=== PATIENT | female | born 1945 | race Caucasian/White ===

== ENCOUNTER 2024-07-30 11:00 | Emergency (ER) | payer MEDICARE, SELFPAY ==
[2024-07-30 11:30] VITALS: BP 119/76
--- NOTE | 2024-07-30 11:48 | ED.GENMED ---
ED Provider Triage
<Gypsy You NP - Last Filed: 07/30/24 11:56>
-
Patient seen by provider in Triage?: Seen in Triage
Attestation: A medical screening examination has been initiated by a qualified medical provider. Based on the assessment performed at this time, it has been determined that an emergent medical condition may exist and the patient has been informed
that further medical evaluation and possible additional diagnostic testing may be needed.
HPI: sudden onset feeling lightheaded and like she would pass out just after washing herself in her Bathroom, called for her who called daughter, who called EMS and they helped her up. No LOC. Denies H/A, neck pain. Now with pain right
lower back.
Pt in bed past 2 days for her chronic, intermittent vertigo.
GENERAL: Alert , in no apparent distress
EYE: No visual abnormalities.
ENT: No visible abnormalities.
LUNGS: No acute respiratory distress
NEUROLOGICAL: Alert and oriented. No focal neurological abnormalities
SKIN: Skin intact. No visible changes.
MUSCULOSKELETAL: Moving extremities normally. Tender right lower back, just lateral to spine. no spinal bony tenderness
PSYCH: Normal and appropriate interaction.
This is a medical evaluation conducted in person to initiate diagnostic evaluation and provide initial therapeutics. Please see further documentation by the treating clinician.
History of Present Illness
<Gypsy You NP - Last Filed: 07/30/24 11:56>
General
Chief Complaint: Fainting/Passed Out
Time Seen by Provider: 07/30/24 13:01
<Nya Lopez MD - Last Filed: 07/30/24 18:54>
General
Source: patient and family
History of Present Illness
History of Present Illness:
this patient is a 78-year-old female presents to the emergency department after having an episode of near syncope. She describes a history of chronic intermittent vertigo and states that she was in bed all day yesterday because of vertigo with
poor p.o. intake. She woke up this morning and went into the bathroom and as she was standing from the mirror at approximately 9:30 AM she suddenly started to feel lightheaded and fell down to the ground. She did not hit her head and denies loss
of consciousness. Her only complaint is discomfort on the right side of her mid back. She denies neck pain, headache, visual changes, numbness, tingling, focal weakness, chest pain, palpitations, dyspnea, abdominal pain, or other complaints. Her
daughter who is bedside states that she has had syncopal/near syncopal episodes in the past but is never sought medical care for this.
Past History
<Nya Lopez MD - Last Filed: 07/30/24 18:54>
Past History
ED Past Medical History: Other (High blood pressure, high cholesterol, vertigo)
ED Past Surgical History: Orthopedic
Social History
Tobacco: Former smoker
Alcohol: None
Drug: None
Personal:
Living: with family
Phy Exam
<Nya Lopez MD - Last Filed: 07/30/24 18:54>
Physical Exam
Physical Exam:
GENERAL: Alert , in no apparent distress
EYE: pupils equal and reactive, no nystagmus, EOMI, no photophobia
NECK: Supple, no significant adenopathy, no midline tenderness.
ENT: o/p clr, mmm.
CARDIAC: Regular rate and rhythm .
LUNGS: Clear breath sounds bilaterally, no acute respiratory distress, no wheezes/rales/rhonchi
ABDOMEN: Soft, without focal tenderness, no r/g, no cvat
NEUROLOGICAL: Alert and oriented, no focal neuro deficits, [id number] normal, motor 5 out of 5, sensory intact, cranial nerves II through XII intact, gait normal
SKIN: Warm and dry, skin intact.
MUSCULOSKELETAL: No edema, well perfused.
PSYCH: Normal and appropriate interaction.
bACK: no midline ttp, no bruiing noted
Course
<Gypsy JillianMiley Day, STUNT WOMAN - Last Filed: 07/30/24 11:56>
Orders/Labs/Results
Orders:
Orders
07/30/24 11:04
ECG [Electrocardiogram (*1)] Urgent
Reason for Study: Syncope
EKG- Treatment ONCE
07/30/24 11:48
Complete Blood Count/With Diff Urgent
Comprehensive Metabolic Panel Urgent
07/30/24 11:51
L-S Spine, 2 or 3 View [CR Lumbar Spine 2 Or 3 Views] Urgent
Comment:
Reason For Exam: Pain after fall.
07/30/24 11:53
CT Head W/o Iv Contrast Urgent
Comment:
Reason For Exam: sudden onset feeling like she would pass out
Abnormal Lab Results
07/30/24
11:48
MCHC 32.4 L g/dL
(33.0-37.0)
MPV 10.7 H fL
(7.4-10.4)
Absolute Lymphs (auto) 0.9 L 10^3/uL
(1.2-3.4)
Lymphocytes % 16.1 L %
(20.5-51.1)
BUN 21 H mg/dl
(7-17)
07/30/24 11:48
07/30/24 11:48
Vital Signs
Initial and Last Documented VS:
Initial Vital Signs
Temp Pulse BP Pulse Ox
98.4 F 100 119/76 100
07/30/24 11:30 07/30/24 11:30 07/30/24 11:30 07/30/24 11:30
Last Documented Vital Signs
Temp Pulse Resp BP Pulse Ox
98.4 F 72 20 122/64 99
07/30/24 11:30 07/30/24 13:20 07/30/24 13:20 07/30/24 13:20 07/30/24 13:20
<Nya Lopez MD - Last Filed: 07/30/24 18:54>
Orders/Labs/Results
Orders:
Orders
07/30/24 11:04
ECG [Electrocardiogram (*1)] Urgent
Reason for Study: Syncope
EKG- Treatment ONCE
07/30/24 11:48
Complete Blood Count/With Diff Urgent
Comprehensive Metabolic Panel Urgent
07/30/24 11:51
L-S Spine, 2 or 3 View [CR Lumbar Spine 2 Or 3 Views] Urgent
Comment:
Reason For Exam: Pain after fall.
07/30/24 11:53
CT Head W/o Iv Contrast Urgent
Comment:
Reason For Exam: sudden onset feeling like she would pass out
Abnormal Lab Results
07/30/24
11:48
MCHC 32.4 L g/dL
(33.0-37.0)
MPV 10.7 H fL
(7.4-10.4)
Absolute Lymphs (auto) 0.9 L 10^3/uL
(1.2-3.4)
Lymphocytes % 16.1 L %
(20.5-51.1)
BUN 21 H mg/dl
(7-17)
07/30/24 11:48
07/30/24 11:48
Vital Signs
Initial and Last Documented VS:
Initial Vital Signs
Temp Pulse BP Pulse Ox
98.4 F 100 119/76 100
07/30/24 11:30 07/30/24 11:30 07/30/24 11:30 07/30/24 11:30
Last Documented Vital Signs
Temp Pulse Resp BP Pulse Ox
98.4 F 72 20 122/64 99
07/30/24 11:30 07/30/24 13:20 07/30/24 13:20 07/30/24 13:20 07/30/24 13:20
<Nya Lopez MD - Last Filed: 07/30/24 18:54>
*Critical Care Note
Total Time (30-74mins, 75-104mins- exclusive of procedures): Not Applicable
<Nya Lopez MD - Last Filed: 07/30/24 18:54>
Update Note
Update Note:
Patient presents to the Emergency Department with ____near syncope
Number and Complexity of Problems Addressed at the Encounter
� Chronic conditions affecting care:
� Acute Exacerbation and/or Progression of Chronic Illness:
� Differential Diagnosis includes: But not limited to dehydration, vasovagal events, electrolyte disorder, arrhythmia, etc. etc.
Amount and/or Complexity of Data to be Reviewed and Analyzed
� I performed an independent evaluation of and my interpretation is:
EKG: Read by me, normal sinus rhythm, normal rate, normal axis, no acute ischemia
CT: Read by Dr. Mcbride 1. No CT evidence for acute intracranial hemorrhage or transcortical infarct.
2. Small asymmetric focal regions of low-attenuation in the anterior limb of the left internal capsule and left external capsule. Diagnostic possibilities are (1) white matter leukoaraiosis or (2) small chronic lacunar infarcts.
3. Mild periventricular white matter leukoaraiosis in the frontal lobes.
4. Mild diffuse cerebral and cerebellar volume loss.
Xrays:
Laboratory Studies: Generally unremarkable
Other:ls spine read by me nad
� Review of other/old records reveals:
� Clinical information was obtained by an independent historian: Daughter who she lives with and is at bedside providing additional history
� Prescriptions/Medications Considered but not given:
� Further testing considered but not performed:
Risk of Complications and/or Morbidity or Mortality of Patient Management
� Social determinants of health affecting care:
� Discussion with other providers (PCP, Hospitalists, Consultants, etc):
� Escalation of care including admission/observation vs risk of discharge considered: Suspect back pain likely soft tissue related, no bony injury noted on x-ray, patient is aware this is a pulmonary report. No neurological
symptoms. Gait is normal patient awake alert pleasant. I had a long discussion with patient and daughter regarding her CAT scan findings and recommendation for neurology follow-up as well as reasons return the emergency department. They expressed
understanding of this. Note: pt is on asa, 81 mg qd.
ED Attending Note
<Gypsy You NP - Last Filed: 07/30/24 11:56>
-
Portions of this chart may have been created with voice recognition software.� Occasional wrong word or��sound alike� substitutions may have occurred due to the inherent limitations of voice recognition software.
Discharge Plan
Departure
Patient Disposition: Home (Routine Discharge)
Date of Disposition: 07/30/24
Time of Disposition: 13:32
Patient with high blood pressure during this ER visit?: No
Condition: Good
Discharge Problem:
Near syncope
Instructions: Syncope (fainting)
Referrals:
Asif Valeznuela MD [Active] - Next open appointment
Narciso Olguin MD [Active] - Next open appointment
Activity Restrictions/Additional Instructions:
PLEASE SEE ATTACHED CAT SCAN REPORT OF BRING THIS WITH YOU WHEN YOU SEE YOUR NEUROLOGIST/PRIMARY CARE DOCTOR AND CLOSE FOLLOW-UP. IF YOU DEVELOP NUMBNESS, WEAKNESS, CLUMSINESS, CHANGE IN VISION, CHANGE IN SPEECH, RECURRENT DIZZINESS, SEVERE
HEADACHE, NECK PAIN, OR OTHER WORRISOME SIGNS, PLEASE RETURN TO THE ER IMMEDIATELY.
Interventions
Interventions:
*Risk Screen - Suicide Last Done: 07/30/24 11:36
*General Assessment Last Done: 07/30/24 13:20
*Neglect/Abuse Screening Last Done: 07/30/24 11:36
*ED COVID-19 Vaccine History Last Done: 07/30/24 13:20
*Nursing Disposition Last Done: 07/30/24 13:49
ED- Cardiac Assessment Last Done: 07/30/24 13:20
ED- Neurological Assessment Last Done: 07/30/24 13:20
Discharge Date and Time
Discharge Date/Time: 07/30/24 13:50
Print Language: GUATEMALAN
[2024-07-30 12:14] LABS: % Basophils 1.3 % (0-2); % Eosinophils 1.9 % (0-6); % Immature Granulocytes 0.4 % (0-0.5); % Lymphocytes 16.1 % (20.5-51.1); % Monocytes 7.1 % (1.7-9.3); % Neutrophils 73.2 % (42.2-75.2); Absolute Basophils 0.1 10^3/uL (0-0.2); Absolute Eosinophils 0.1 10^3/uL (0-0.7); Absolute Lymphocytes 0.9 10^3/uL (1.2-3.4); Absolute Monocytes 0.4 10^3/uL (0.1-0.6); Hematocrit 43.2 % (37.0-47.0); Mean Corp Hgb Conc. 32.4 g/dL (33.0-37.0); Mean Corpuscular Hgb 30.7 pg (27.0-31.0); Mean Corpuscular Volume 94.7 fL (81.0-99.0); Mean Platelet Volume 10.7 fL (7.4-10.4); Nucleated Red Blood Cells % 0 %; Platelet Count 193 10^3/uL (130-400); Red Blood Cell Count 4.56 10^6/uL (4.20-5.40); Red Cell Dist. Width 13.1 % (11.5-14.5); White Blood Cell Count 5.4 10^3/uL (4.8-10.8)
[2024-07-30 12:33] LABS: ALT (SGPT) 19 U/L (0-35); AST (SGOT) 34 U/L (14-36); Albumin 4.4 g/dl (3.5-5.0); Alkaline Phosphatase 72 U/L (38-126); Blood Urea Nitrogen 21 mg/dl (7-17); Calcium 9.6 mg/dl (8.4-10.2); Carbon Dioxide 24 mmol/L (22-30); Chloride 103 mmol/L (98-107); Glucose 84 mg/dl (70-99); Potassium 4.4 mmol/L (3.5-5.1); Sodium 138 mmol/L (135-145); Total Bilirubin 1.1 mg/dl (0.2-1.3); Total Protein 7.1 g/dl (6.3-8.2); eGFR > 60.00
[2024-07-30 13:20] VITALS: BP 122/64
== END 2024-07-30 13:50 | disposition home or self-care (01) ==
LOC: EMR 11:00
PROVIDERS: Emergency Medicine; EMERGENCY PHYSICIAN Emergency Medicine
DX: R55 Syncope and collapse (principal); M54.9 Dorsalgia, unspecified; W19.XXXA Unspecified fall, initial encounter; E78.00 Pure hypercholesterolemia, unspecified; Z87.891 Personal history of nicotine dependence; Z79.82 Long term (current) use of aspirin
CPT/HCPCS: 99284; 70450; 72100; 80053; 85025; 93005

== ENCOUNTER 2024-10-26 10:52 | Emergency (ER) | payer MEDICARE, SELFPAY ==
[2024-10-26] VITALS (9 sets, daily range): BP systolic 100–126; BP diastolic 49–79; PULSE 67–95; O2SAT 100; BMI 27.7
[2024-10-26 13:08] LABS: % Basophils 1.5 % (0-2); % Immature Granulocytes 0.2 % (0-0.5); % Lymphocytes 27.6 % (20.5-51.1); % Monocytes 8.1 % (1.7-9.3); % Neutrophils 58.6 % (42.2-75.2); Absolute Basophils 0.1 10^3/uL (0-0.2); Absolute Eosinophils 0.2 10^3/uL (0-0.7); Absolute Lymphocytes 1.3 10^3/uL (1.2-3.4); Absolute Monocytes 0.4 10^3/uL (0.1-0.6); Absolute Neutrophils 2.8 10^3/uL (1.4-6.5); Hematocrit 38.3 % (37.0-47.0); Hemoglobin 13.1 g/dL (12.0-16.0); Mean Corp Hgb Conc. 34.2 g/dL (33.0-37.0); Mean Corpuscular Hgb 31.3 pg (27.0-31.0); Mean Corpuscular Volume 91.4 fL (81.0-99.0); Mean Platelet Volume 10.8 fL (7.4-10.4); Nucleated Red Blood Cells % 0 %; Platelet Count 174 10^3/uL (130-400); Red Blood Cell Count 4.19 10^6/uL (4.20-5.40); Red Cell Dist. Width 13.2 % (11.5-14.5); White Blood Cell Count 4.8 10^3/uL (4.8-10.8)
--- NOTE | 2024-10-26 13:33 | ED.GENMED ---
History of Present Illness
General
Chief Complaint: Cardiac Symptoms
Source: patient and family
Time Seen by Provider: 10/26/24 12:19
History of Present Illness
History of Present Illness:
79-year-old female with past medical history of CAD status postacute [place], acute on chronic vertigo (no specific cause or etiology ever identified) presenting to the emergency department for evaluation with 1 week of persistent vertigo that has been
unrelieved with her meclizine and Zofran stating this feels similar to when she was in the hospital here earlier this year and was recommended to follow-up with neurology but has not been able to do so. Patient states that the vertigo is now
associated with some mild chest discomfort over the last 2 days, headache and intermittent shortness of breath. Patient does believe a lot of her symptoms are attributed to stress from dealing with her 's current health conditions of
end-stage renal and end-stage heart failure. Patient is otherwise denying any fevers, chills, rigors, nausea, vomiting, visual changes, focal weakness or numbness or any other concerns.
Past History
Past History
ED Past Medical History: CAD, [place] and Other (High blood pressure, high cholesterol, vertigo)
ED Past Surgical History: Orthopedic
Social History
Tobacco: Former smoker
Alcohol: None
Drug: None
Personal:
Living: with family
Review of Systems
Review of Systems
All Other Systems: ROS reviewed and negative except as documented in HPI and ROS
Phy Exam
Physical Exam
Physical Exam:
GENERAL: Alert , in no apparent distress
HEAD: NCAT
EYE: pupils equal and reactive, 4mm, EOMI
NECK: Supple
ENT: mmm.
CARDIAC: Regular rate and rhythm .
LUNGS: Clear breath sounds bilaterally, no acute respiratory distress, no wheezes/rales/rhonchi
NEUROLOGICAL: Alert and oriented, no focal neuro deficits, ambulated using walker without any ataxia
SKIN: Warm and dry, skin intact.
MUSCULOSKELETAL: No edema, well perfused.
PSYCH: Normal and appropriate interaction.
Scores
Heart Failure Risk
Heart Failure Risk Score: Not Applicable
Heart Score for Chest Pain Patients
STEMI patient?: Not applicable
Withdrawal Assessment of Alcohol
Withdrawal Assessment Completed?: Not applicable
Course
Orders/Labs/Results
Orders:
Orders
10/26/24 10:54
ECG [Electrocardiogram (*1)] Urgent
Reason for Study: Chest Pain
EKG- Treatment ONCE
10/26/24 12:50
Physical Therapy Consult [Pt Eval And Treat] Urgent
Treatment: vestibular tx
Activity Level: Ambulate
10/26/24 12:51
CT Head W/o Iv Contrast Urgent
Comment:
Reason For Exam: vertigo
Orthostatic VS- Treatment ONCE
10/26/24 12:57
Complete Blood Count/With Diff Urgent
Comprehensive Metabolic Panel Urgent
Magnesium Urgent
Troponin I Urgent
Abnormal Lab Results
10/26/24
12:57
RBC 4.19 L 10^6/uL
(4.20-5.40)
MCH 31.3 H pg
(27.0-31.0)
MPV 10.8 H fL
(7.4-10.4)
BUN 20 H mg/dl
(7-17)
Glucose 110 H mg/dl
(70-99)
10/26/24 12:57
10/26/24 12:57
Vital Signs
Initial and Last Documented VS:
Initial Vital Signs
Temp Pulse Resp BP Pulse Ox
97.5 F 82 16 100/66 95
10/26/24 11:02 10/26/24 11:02 10/26/24 11:02 10/26/24 11:02 10/26/24 11:02
Last Documented Vital Signs
Temp Pulse Resp BP Pulse Ox
97.5 F 67 22 122/51 100
10/26/24 11:02 10/26/24 15:00 10/26/24 15:00 10/26/24 15:00 10/26/24 15:00
MDM/Problems Addressed
Differential Diagnosis Includes:
Peripheral versus central vertigo, BPPV, labyrinthitis, cerebellar stroke, mass/malignancy, medication induced, anemia, stress and anxiety considered
MDM/Problems Addressed:
79-year-old female presenting to the ER for multitude of concerns but centrally patient is most concerned about her continued vertigo. This has been an ongoing symptom for many years with no specific etiology although patient does note she has not
had much outpatient workup for this and is usually just managed at home with some p.o. meclizine. Patient without any focal symptoms. She did ambulate steadily. Will check labs, repeat CT imaging, physical therapy consult and close monitoring.
*Radiology
Radiology exam reviewed: radiology read reviewed
*Pulse Oximetry
Patient hypoxic: no
*EKG
Heart Rate: 79
Rate: normal
Rhythm: sinus arrhythmia
[place]: normal axis
Ischemia: no ischemia
*[employer] T[employer] Interpretation
Rate: normal
Rhythm: sinus
*Critical Care Note
Total Time (30-74mins, 75-104mins- exclusive of procedures): Not Applicable
Patient Management
Social determinants of health affecting care: Living situation and Strong social support
Escalation/DeEscalation of care consider admission/obs:
Patient saw physical therapy and following vestibular therapy felt significant improvement and full relief of her vertigo. Patient also expressed she does feel that her stress over her 's health is likely a large contributing factor to her
symptoms. Her blood work is reassuring, head CT is unchanged from previous and does not show any acute abnormalities and patient does ambulate steadily. Patient feels comfortable with being discharged home. Recommended outpatient follow-up with
the ENT. Patient aware of return precautions. Stable for discharge home.
ED Attending Note
-
Portions of this chart may have been created with voice recognition software.� Occasional wrong word or��sound alike� substitutions may have occurred due to the inherent limitations of voice recognition software.
Discharge Plan
Departure
Patient Disposition: Home (Routine Discharge)
Date of Disposition: 10/26/24
Time of Disposition: 15:21
Patient with high blood pressure during this ER visit?: No
Discharge Problem:
Vertigo
Instructions: Vertigo - ED discharge instructions
Referrals:
Elysia Zepeda DO [Family Provider] -
Interventions
Interventions:
*Risk Screen - Suicide Last Done: 10/26/24 11:03
*Neglect/Abuse Screening Last Done: 10/26/24 11:03
*Nursing Disposition Last Done: 10/26/24 15:42
ED- Pulmonary Assessment Last Done: 10/26/24 13:10
ED- Cardiac Assessment Last Done: 10/26/24 13:10
Discharge Date and Time
Discharge Date/Time: 10/26/24 15:43
Print Language: FIJIAN
[2024-10-26 13:34] LABS: ALT (SGPT) 16 U/L (0-35); AST (SGOT) 31 U/L (14-36); Albumin 3.8 g/dl (3.5-5.0); Alkaline Phosphatase 64 U/L (38-126); Blood Urea Nitrogen 20 mg/dl (7-17); Calcium 9.7 mg/dl (8.4-10.2); Carbon Dioxide 28 mmol/L (22-30); Chloride 105 mmol/L (98-107); Estimated Creatinine Clearance 47 ml/min; Glucose 110 mg/dl (70-99); Magnesium 1.9 mg/dl (1.6-2.3); Potassium 4.4 mmol/L (3.5-5.1); Sodium 139 mmol/L (135-145); Total Bilirubin 0.9 mg/dl (0.2-1.3); Total Protein 6.5 g/dl (6.3-8.2); Troponin I < 0.012 ng/ml; eGFR > 60.00
== END 2024-10-26 15:43 | disposition home or self-care (01) ==
LOC: EMR 10:52
PROVIDERS: Physician Assistant Medical; EMERGENCY PHYSICIAN Emergency Medicine; FAMILY PHYSICIAN Family Medicine
DX: R42 Dizziness and giddiness (principal); I25.10 Atherosclerotic heart disease of native coronary artery without angina pectoris; I25.2 Old myocardial infarction; E78.00 Pure hypercholesterolemia, unspecified; Z87.891 Personal history of nicotine dependence
CPT/HCPCS: 99284; 70450; 80053; 83735; 84484; 85025; 93005

== ENCOUNTER 2024-11-18 17:52 | Emergency (ER) | payer MEDICARE, SELFPAY ==
[2024-11-18 17:59] VITALS: BP 121/57
[2024-11-18 18:09] VITALS: BP 125/57
--- NOTE | 2024-11-18 18:49 | ED.GENMED ---
History of Present Illness
General
Chief Complaint: Numbness
Time Seen by Provider: 11/18/24 18:09
History of Present Illness
History of Present Illness:
79-year-old female presents the emergency department for evaluation of abrupt onset of left facial paresthesias and left leg weakness developing approximately 1500 today. She states that she felt as though she was listing to the left when walking
and was concerned she may fall. Symptoms are present currently. Denies any speech difficulty, vision changes, headache, chest pain, or shortness of breath. She was noted to indicate chest pain while in triage however states that she felt this was
anxiety and has no chest pain at present. No shortness of breath.
Past History
Past History
ED Past Medical History: CAD, [place] and Other (High blood pressure, high cholesterol, vertigo)
ED Past Surgical History: Orthopedic
Social History
Tobacco: Former smoker
Alcohol: None
Drug: None
Personal:
Living: with family
Review of Systems
Review of Systems
Allergies reviewed?: Yes
All Other Systems: ROS reviewed and negative except as documented in HPI and ROS
Phy Exam
Physical Exam
Physical Exam:
GEN: Well appearing, NAD, WDWN
HEENT: Oral mucosa moist, no scleral icterus, no nasal congestion
Cardiac: Regular rate
Lung: No respiratory distress, no tachypnea
MSK: No gross deformity or injuries
Skin: Good color, no pallor or jaundice, no rashes
Neuro: AO x3; CN II-XII grossly intact. BUE strength 5/5 in all dominguez, sensation intact and symmetric. BLE strength 5/5 in all dominguez, sensation intact and symmetric. Gait is steady without assistance, no listing. [id number] and [id number]
normal
Psych: Calm, cooperative
Course
Orders/Labs/Results
Orders:
Orders
11/18/24 17:54
Electrocardiogram (*1) Urgent
Reason for Study: Chest Pain
EKG- Treatment ONCE
11/18/24 18:17
CT Head & Neck Angio W/wo IV Urgent
Comment:
Reason For Exam: L sided paresthesia/weakness, NIH 0
11/18/24 18:18
Electrocardiogram (*1) Urgent
Reason for Study: TIA/Stroke
EKG- Treatment ONCE
11/18/24 19:01
Complete Blood Count/With Diff Urgent
Comprehensive Metabolic Panel Urgent
11/18/24 22:21
Clopidogrel Bisulfate [Plavix] 300 mg PO NOW STA
Abnormal Lab Results
11/18/24
19:01
RBC 3.76 L 10^6/uL
(4.20-5.40)
Hgb 11.7 L g/dL
(12.0-16.0)
Hct 35.2 L %
(37.0-47.0)
MCH 31.1 H pg
(27.0-31.0)
MPV 10.9 H fL
(7.4-10.4)
Monocytes % 9.4 H %
(1.7-9.3)
Eosinophils % 6.4 H %
(0-6)
BUN 21 H mg/dl
(7-17)
Glucose 139 H mg/dl
(70-99)
Total Protein 6.1 L g/dl
(6.3-8.2)
11/18/24 19:01
11/18/24 19:01
Vital Signs
Initial and Last Documented VS:
Initial Vital Signs
Temp Pulse BP Pulse Ox
98.2 F 81 121/57 99
11/18/24 17:59 11/18/24 17:59 11/18/24 17:59 11/18/24 17:59
Last Documented Vital Signs
Temp Pulse Resp BP Pulse Ox
98.2 F 82 23 131/56 100
11/18/24 17:59 11/18/24 19:47 11/18/24 19:47 11/18/24 22:05 11/18/24 19:06
MDM/Problems Addressed
MDM/Problems Addressed:
Patient has an unremarkable neurologic exam on my assessment. She was sent for CT angiogram imaging to assess for carotid artery stenosis, large vessel occlusion, or intracranial hemorrhage and this was unremarkable. She has had prior lacunar
infarcts with no reported symptoms. She is chronically on baby aspirin. I discussed the case with neurology who recommends discharge on 21-day Plavix and outpatient brain MRI through her primary care physician
*Critical Care Note
Total Time (30-74mins, 75-104mins- exclusive of procedures): Not Applicable
ED Attending Note
-
Portions of this chart may have been created with voice recognition software.� Occasional wrong word or��sound alike� substitutions may have occurred due to the inherent limitations of voice recognition software.
Discharge Plan
Departure
Patient Disposition: Home (Routine Discharge)
Date of Disposition: 11/18/24
Time of Disposition: 22:21
Patient with high blood pressure during this ER visit?: No
Discharge Problem:
Transient ischemic attack (TIA)
Instructions: Transient Ischemic Attack ED
Prescriptions:
New
clopidogrel [Plavix] 75 mg tablet
75 mg PO DAILY Qty: 20 0RF
Referrals:
Elysia Zepeda DO [Family Provider] -
Activity Restrictions/Additional Instructions:
Follow-up with your primary care physician this week, you likely will need a brain MRI as an outpatient
Return if symptoms worsen
Interventions
Interventions:
*Risk Screen - Suicide Last Done: 11/18/24 18:02
*General Assessment Last Done: 11/18/24 19:06
*Neglect/Abuse Screening Last Done: 11/18/24 18:04
*ED- Fall Risk Assessment Last Done: 11/18/24 19:06
*ED COVID-19 Vaccine History Last Done: 11/18/24 19:06
*Nursing Disposition Last Done: 11/18/24 22:38
ED- Neurological Assessment Last Done: 11/18/24 19:06
Discharge Date and Time
Print Language: BHUTANESE
[2024-11-18 18:55] VITALS: BMI 27.6
[2024-11-18 19:14] LABS: % Basophils 1.4 % (0-2); % Eosinophils 6.4 % (0-6); % Immature Granulocytes 0.2 % (0-0.5); % Lymphocytes 35.1 % (20.5-51.1); % Monocytes 9.4 % (1.7-9.3); % Neutrophils 47.5 % (42.2-75.2); Absolute Basophils 0.1 10^3/uL (0-0.2); Absolute Eosinophils 0.3 10^3/uL (0-0.7); Absolute Lymphocytes 1.8 10^3/uL (1.2-3.4); Absolute Monocytes 0.5 10^3/uL (0.1-0.6); Absolute Neutrophils 2.4 10^3/uL (1.4-6.5); Hematocrit 35.2 % (37.0-47.0); Hemoglobin 11.7 g/dL (12.0-16.0); Mean Corp Hgb Conc. 33.2 g/dL (33.0-37.0); Mean Corpuscular Hgb 31.1 pg (27.0-31.0); Mean Corpuscular Volume 93.6 fL (81.0-99.0); Mean Platelet Volume 10.9 fL (7.4-10.4); Nucleated Red Blood Cells % 0 %; Platelet Count 173 10^3/uL (130-400); Red Blood Cell Count 3.76 10^6/uL (4.20-5.40); Red Cell Dist. Width 13.6 % (11.5-14.5)
[2024-11-18 19:28] LABS: ALT (SGPT) 14 U/L (0-35); AST (SGOT) 25 U/L (14-36); Albumin 3.8 g/dl (3.5-5.0); Alkaline Phosphatase 55 U/L (38-126); Blood Urea Nitrogen 21 mg/dl (7-17); Calcium 9.2 mg/dl (8.4-10.2); Carbon Dioxide 28 mmol/L (22-30); Chloride 106 mmol/L (98-107); Estimated Creatinine Clearance 44 ml/min; Glucose 139 mg/dl (70-99); Potassium 5.1 mmol/L (3.5-5.1); Sodium 139 mmol/L (135-145); Total Bilirubin 0.7 mg/dl (0.2-1.3); Total Protein 6.1 g/dl (6.3-8.2); eGFR 56.95
[2024-11-18 22:05] VITALS: BP 131/56
[2024-11-18] MEDS: PLAVIX 300 MG PO (22:25)
== END 2024-11-18 22:38 | disposition home or self-care (01) ==
LOC: EMR 17:52
PROVIDERS: Physician Assistant; EMERGENCY PHYSICIAN Emergency Medicine; FAMILY PHYSICIAN Family Medicine
DX: G45.9 Transient cerebral ischemic attack, unspecified (principal); E78.00 Pure hypercholesterolemia, unspecified; I25.10 Atherosclerotic heart disease of native coronary artery without angina pectoris; Z87.891 Personal history of nicotine dependence; Z79.82 Long term (current) use of aspirin
CPT/HCPCS: 99284; 70496; 70498; 80053; 85025; 93005; Q9967

== ENCOUNTER 2024-12-16 09:37 | Emergency (ER) | payer MEDICARE, SELFPAY ==
[2024-12-16 09:39] VITALS: BP 140/72
--- NOTE | 2024-12-16 10:12 | ED.GENMED ---
History of Present Illness
General
Chief Complaint: Chest Pain
Time Seen by Provider: 12/16/24 09:44
History of Present Illness
History of Present Illness:
79-year-old female with prior history of CAD status post stenting presenting to the emergency department for chest pain. Patient reports symptoms started around 6 AM. Pain in the left side of her chest with radiation to her left arm, also reports
some tingling to the left side of her face. Pain was initially sharp, now dull. Denies difficulty breathing. Denies fever. Denies any recent injury or fall. Denies weakness to extremities. Patient recently moved from [place], does not
presently have a commercial relationship manager. Denies additional acute medical complaints
Past History
Past History
ED Past Medical History: CAD, AL and Other (High blood pressure, high cholesterol, vertigo)
ED Past Surgical History: Orthopedic
Social History
Tobacco: Former smoker
Alcohol: None
Drug: None
Personal:
Living: with family
Phy Exam
Physical Exam
Physical Exam:
General: Well-appearing, no clinical signs of dehydration, nontoxic and in no acute distress
HEENT: protecting airway
Neck: appears supple
CV: Normal heart rate, regular rhythm, reproducible tenderness to the left chest wall
Resp: No accessory muscle use, no increased work of breathing, lungs clear to auscultation bilaterally
Abd: Soft and non-distended, no tenderness to palpation
Extremities: No deformities, no swelling
Neuro: alert, no focal neurologic deficit
: deferred
Rectal: deferred
Psych: Normal affect
Skin: Intact
Scores
Heart Score for Chest Pain Patients
STEMI patient?: No
History: Slightly or Non-Suspicious
ECG: Normal
Age: >/= 65 years
Risk Factors: 1 or 2 Risk Factors
Troponin: </= Normal Limit
Heart Score for Chest Pain Patients: 3
Heart Score Risk: 2.5% MACE over next 6 weeks
Course
Orders/Labs/Results
Orders:
Orders
12/16/24 09:41
EKG [Electrocardiogram (*1)] Urgent
Reason for Study: Chest Pain
EKG- Treatment ONCE
12/16/24 10:10
Aspirin 325 mg PO NOW STA
12/16/24 10:11
CR Chest - 2 Views Urgent
Comment:
Reason For Exam: chest pain
12/16/24 10:22
Complete Blood Count/With Diff Urgent
Comprehensive Metabolic Panel Urgent
Troponin I Q3H
12/16/24 13:13
Troponin I Q3H
12/16/24 13:48
Electrocardiogram (*1) Urgent
Reason for Study: Chest Pain
EKG- Treatment ONCE
Abnormal Lab Results
12/16/24
10:22
WBC 4.3 L 10^3/uL
(4.8-10.8)
RBC 4.19 L 10^6/uL
(4.20-5.40)
MPV 10.8 H fL
(7.4-10.4)
Absolute Lymphs (auto) 1.0 L 10^3/uL
(1.2-3.4)
Chloride 111 H mmol/L
(98-107)
12/16/24 10:22
12/16/24 10:22
Vital Signs
Initial and Last Documented VS:
Initial Vital Signs
Temp Pulse Resp BP Pulse Ox
97.9 F 81 17 140/72 99
12/16/24 09:39 12/16/24 09:39 12/16/24 09:39 12/16/24 09:39 12/16/24 09:39
Last Documented Vital Signs
Temp Pulse Resp BP Pulse Ox
97.9 F 67 11 138/57 97
12/16/24 09:39 12/16/24 14:45 12/16/24 14:45 12/16/24 14:00 12/16/24 14:45
MDM/Problems Addressed
MDM/Problems Addressed:
79-year-old female with prior history of CAD status post stenting presenting for left-sided chest pain. Vital signs on arrival are normal.
On exam patient is resting comfortably, no acute distress or discomfort. Benign cardiac and pulmonary exam, mild tenderness to the left chest wall. EKG obtained on patient's arrival, nonischemic, no STEMI criteria, no change from prior. Lower
suspicion for ACS, reproducible pain on exam. However, patient does have significant risk factors, so we will screen further with troponin and chest x-ray imaging and continue to closely monitor. Aspirin administered
12:00 - Initial troponin is undetectable. Vitals remained stable. Chest x-ray without acute cardiopulmonary disease. Plan for second troponin.
14:30 -second troponin within normal limits. Repeat EKG is unchanged. At this time patient remains milligram stable. Feel stable for discharge, have advised calling her commercial relationship manager tomorrow. Return precautions discussed and patient verbalized
understanding
*EKG
Interpreted by ED Provider?: Yes
EKG Intrepretation Date: 12/16/24
EKG Intrepretation Time: 10:18
Interpretation: normal
Comparison EKG: no changes (11/18/24)
Heart Rate: 73
Rate: normal
Rhythm: sinus
[place]: normal axis
Interval: normal interval
QRS Pattern: normal QRS
Ischemia: no ischemia
*Critical Care Note
Total Time (30-74mins, 75-104mins- exclusive of procedures): Not Applicable
ED Attending Note
-
Portions of this chart may have been created with voice recognition software.� Occasional wrong word or��sound alike� substitutions may have occurred due to the inherent limitations of voice recognition software.
Discharge Plan
Departure
Patient Disposition: Home (Routine Discharge)
Date of Disposition: 12/16/24
Time of Disposition: 14:44
Patient with high blood pressure during this ER visit?: No
Condition: Good
Discharge Problem:
Chest pain
Instructions: Chest Pain CBC Follow Up
Prescriptions:
No Action
clopidogrel [Plavix] 75 mg tablet
75 mg PO DAILY Qty: 20 0RF
Referrals:
Sonia Hobbs MD [Active, Cardiology]
UNKNOWN - PT NOT,INTERVIEWE [Unknown Provider]
Activity Restrictions/Additional Instructions:
You were seen in the emergency department for chest pain
You were found to have reassuring EKG and laboratory analysis. Please follow-up closely with the commercial relationship manager.
Please follow-up closely with your primary care physician.
Return to the emergency department for any worsening of your symptoms, or any development of chest pain, difficulty breathing, abdominal pain with persistent vomiting and inability to tolerate food or liquid by mouth (concern for dehydration),
weakness, headache or confusion, fever greater than 100.4, or any additional symptoms that are concerning to you.
Thank you for choosing [facility].
Interventions
Interventions:
*Risk Screen - Suicide Last Done: 12/16/24 09:40
*General Assessment Last Done: 12/16/24 09:40
*Neglect/Abuse Screening Last Done: 12/16/24 09:40
*ED COVID-19 Vaccine History Last Done: 12/16/24 09:40
*Nursing Disposition Last Done: 12/16/24 15:24
ED- Cardiac Assessment Last Done: 12/16/24 11:00
Discharge Date and Time
Discharge Date/Time: 12/16/24 15:25
Print Language: TURKMEN
[2024-12-16 10:21] VITALS: BP 134/95
[2024-12-16] MEDS: ASPIRIN 325 MG PO (10:26)
[2024-12-16 10:30] LABS: % Basophils 1.4 % (0-2); % Eosinophils 4.9 % (0-6); % Immature Granulocytes 0.2 % (0-0.5); % Monocytes 7.7 % (1.7-9.3); % Neutrophils 62.8 % (42.2-75.2); Absolute Basophils 0.1 10^3/uL (0-0.2); Absolute Eosinophils 0.2 10^3/uL (0-0.7); Absolute Monocytes 0.3 10^3/uL (0.1-0.6); Absolute Neutrophils 2.7 10^3/uL (1.4-6.5); Hematocrit 38.6 % (37.0-47.0); Mean Corp Hgb Conc. 33.7 g/dL (33.0-37.0); Mean Corpuscular Volume 92.1 fL (81.0-99.0); Mean Platelet Volume 10.8 fL (7.4-10.4); Nucleated Red Blood Cells % 0 %; Platelet Count 191 10^3/uL (130-400); Red Blood Cell Count 4.19 10^6/uL (4.20-5.40); Red Cell Dist. Width 13.7 % (11.5-14.5); White Blood Cell Count 4.3 10^3/uL (4.8-10.8)
[2024-12-16 10:47] LABS: ALT (SGPT) 16 U/L (0-35); AST (SGOT) 25 U/L (14-36); Albumin 4.2 g/dl (3.5-5.0); Alkaline Phosphatase 58 U/L (38-126); Blood Urea Nitrogen 17 mg/dl (7-17); Calcium 9.5 mg/dl (8.4-10.2); Carbon Dioxide 25 mmol/L (22-30); Chloride 111 mmol/L (98-107); Glucose 95 mg/dl (70-99); Potassium 4.3 mmol/L (3.5-5.1); Sodium 140 mmol/L (135-145); Total Bilirubin 0.9 mg/dl (0.2-1.3); Total Protein 6.6 g/dl (6.3-8.2); eGFR > 60.00
[2024-12-16 10:58] LABS: Troponin I < 0.012 ng/ml
[2024-12-16 11:06] VITALS: BP 129/62
[2024-12-16 12:00] VITALS: BP 131/59
[2024-12-16 13:00] VITALS: BP 135/57
[2024-12-16 14:00] VITALS: BP 138/57
[2024-12-16 14:07] LABS: Troponin I 0.018 ng/ml
== END 2024-12-16 15:25 | disposition home or self-care (01) ==
LOC: EMR 09:37
PROVIDERS: EMERGENCY PHYSICIAN Student in an Organized Health Care Education/Training Program; FAMILY PHYSICIAN Family Medicine
DX: R07.89 Other chest pain (principal); I25.10 Atherosclerotic heart disease of native coronary artery without angina pectoris; E78.00 Pure hypercholesterolemia, unspecified; Z95.5 Presence of coronary angioplasty implant and graft; Z87.891 Personal history of nicotine dependence
CPT/HCPCS: 99285; 71046; 80053; 84484; 85025; 93005

== ENCOUNTER 2025-03-15 17:18 | Observation (INO) | payer MEDICARE, SELFPAY ==
[2025-03-15] VITALS (13 sets, daily range): BP systolic 116–146; BP diastolic 53–90; PULSE 89; O2SAT 98; BMI 28.2; BMI 27.3
[2025-03-15 12:06] LABS: Hematocrit 44.7 % (37.0-47.0); Hemoglobin 15.3 g/dL (12.0-16.0); Mean Corp Hgb Conc. 34.2 g/dL (33.0-37.0); Mean Corpuscular Volume 90.7 fL (81.0-99.0); Nucleated Red Blood Cells % 0 %; Platelet Count 185 10^3/uL (130-400); Red Cell Dist. Width 13.3 % (11.5-14.5)
[2025-03-15 12:33] LABS: Troponin I 0.014 ng/ml
--- NOTE | 2025-03-15 12:34 | ED.GENMED ---
History of Present Illness
General
Chief Complaint: Dizziness
Source: patient
Exam Limitations: none
Time Seen by Provider: 03/15/25 12:33
Nursing documentation reviewed up to this point in time: agreed with
History of Present Illness
History of Present Illness:
79 yo female with history of TIA, CAD, [place] on Plavix, bilateral hip replacements, with a history of recurrent vertigo, last episode presenting today with a four-day history of symptoms. The vertigo has been occurring all day, every day since Tuesday.
The patient reports taking one dose Meclizine 4 days ago w/o improvement, none since and Ondansetron sublingually to manage nausea. Was started on Lexapro two months ago. She expresses that the vertigo is associated with a headache that is rated at
an 8 out of 10 in severity, localized to both temples, forehead, and extending up neck to the base of her skull. She does have neck pain with moving her neck rotating side to side. She denies current nausea, vomiting, chest pain, dyspnea, abdominal
pain, diarrhea, or constipation. The patient has a history of similar episodes and was treated previously, last episode 12/08/24 when admitted for TIA, 10/26/2024 seen here and diagnosed with vertigo.
No recent infections, fever, or chills or visual changes. Denies weakness, numbness, tingling in extremities.
Daughter at [facility] states many members of her family including herself have significant Vertigo.
Past History
Past History
ED Past Medical History: CAD, SD and Other (High blood pressure, high cholesterol, vertigo, TIA)
ED Past Surgical History: Orthopedic
Social History
Tobacco: Former smoker
Alcohol: None
Drug: None
Personal:
Living: with family
Review of Systems
Review of Systems
Allergies reviewed?: Yes
All Other Systems: ROS reviewed and negative except as documented in HPI and ROS
Psychiatric: Reports other
Phy Exam
Physical Exam
Physical Exam:
GENERAL: No acute distress. A&Ox3.
CONSTITUTIONAL: Afebrile.
EYES: clear, conjunctivae normal
ENMT: moist mucus membranes, Pharynx nl
RESPIRATORY: Regular respirations, nonlabored, lungs clear.
CARDIOVASCULAR: Regular rate and rhythm, no murmurs, no rubs.
GI: Soft, nontender, normal BS
MUSCULOSKELETAL: Tender to palpate posterior bilateral paracervical soft tissues at the base of the skull, turning head [id number] elicits neck pain. Moves with ease. Well perfused.
SKIN: Warm, dry, pink
PSYCH: Normal mood and affect. Well kept, interactive and appropriate
NEUROLOGIC: Awake, alert and oriented. Speech clear. Strength equal throughout. Cranial nerves II through XII intact. Finger-nose intact. No focal neurological deficits
Course
Orders/Labs/Results
Orders:
Orders
03/15/25 Breakfast
Regular
03/15/25 11:46
EKG [Electrocardiogram (*1)] Urgent
Reason for Study: Vertigo / Dizzy
EKG- Treatment ONCE
03/15/25 11:47
Basic Metabolic Panel Urgent
Complete Blood Count/With Diff Urgent
Troponin I Urgent
03/15/25 12:34
CT Head W/o Iv Contrast Urgent
Comment:
Reason For Exam: dizziness, headache, nausea
03/15/25 13:28
CR Cervical Spine 4 Or 5 Vw Urgent
Comment:
Reason For Exam: neck pain, dizziness
03/15/25 14:12
Physical Therapy Consult [Pt Eval And Treat] Urgent
Treatment: Vestibular evaluation
Activity Level: As Tolerated
03/15/25 14:30
Acetaminophen [Tylenol] 1,000 mg PO NOW STA
03/15/25 16:38
Admit/Transfer Patient As Directed
Co-Sign Provider:
Level of Care: Observation services
Assign to:: Telemetry
Physician / Group: sharon sal
Diagnosis: vertigo
Reason for Telemetry: Other
Other Reason for Telemetry: vertigo
Date to Stop Telemetry: 03/17/25
Time to Stop Telemetry: 11:00
03/15/25 16:39
PRN Pain Medication Management As Directed
May give lesser potent ordered pain med per pt: Yes
preference::
Protocol:: Medication orders for pain may be administered in a
manner that supports deferring to patient preference
when the pt is:
- Requesting an ordered lesser potent pain medication.
Least to most potent pain medications are defined
as: acetaminophen < NSAID < tramadol < opioids
(morphine, oxycodone, hydromorphone).
- Requesting a lesser dose of the same medication IF
ORDERED.
- Requesting a less intrusive route of administration
if both routes are prescribed by the provider (PO <
IV).
03/15/25 16:40
Code Status As Directed
Resuscitation Status: Full Code
03/15/25 19:35
0.9% Sodium Chloride 1000 ml [Nss] 1,000 ml IV 80 mls/hr
Acetaminophen [Tylenol] 650 mg PO Q4HPRN PRN
Bisacodyl [Dulcolax] 10 mg RECTAL [id number] PRN
Docusate W/Senna [Senokot-S] 1 tablet PO BIDPRN PRN
Meclizine [Antivert] 25 mg PO Q8HPRN PRN dizzy
Polyethylene Glycol Powder [Miralax] 17 grams PO DAILYPRN PRN
03/15/25 19:35
MRI Brain [MR Brain Without Contrast] Routine
Comment:
Reason For Exam: dizzy
Recent pill cam endoscopy?: No
Activity As Directed
Activity Level: As Tolerated
Neurological Checks As Directed
Frequency: Per unit guidelines
Orthostatic Vital Signs As Directed
Orthostatic VS Frequency: BID
Pneumatic Compression Sleeves As Directed
Type: Knee high
Vital Signs As Directed
Frequency: Per unit guidelines
Ot Eval And Treat Routine
DX Deep Vein Thrombosis Video Routine
03/15/25 20:00
Metoprolol [Lopressor] 50 mg PO BID
03/16/25 06:00
Cardiovascular Evaluation IN AM
03/16/25 08:00
Aspirin Chewable [Low Strength Aspirin] 81 mg PO DAILY
Atorvastatin [Lipitor] 40 mg PO DAILY
Escitalopram Oxalate [Lexapro] 5 mg PO DAILY
03/17/25 11:00
DC Protocol for Telemetry ONCE
Abnormal Lab Results
03/15/25
11:47
MPV 10.9 H fL
(7.4-10.4)
Lymphocytes % 19.5 L %
(20.5-51.1)
03/15/25 11:47
03/15/25 11:47
Vital Signs
Initial and Last Documented VS:
Initial Vital Signs
Temp Pulse Resp BP Pulse Ox
98.4 F 97 15 146/66 100
03/15/25 11:44 03/15/25 11:44 03/15/25 11:44 03/15/25 11:44 03/15/25 11:44
Last Documented Vital Signs
Temp Pulse Resp BP Pulse Ox
98.0 F 109 18 146/74 96
03/15/25 19:52 03/15/25 19:52 03/15/25 19:52 03/15/25 19:52 03/15/25 19:52
MDM/Problems Addressed
Differential Diagnosis Includes:
BPPV, lab otitis, vestibular neuritis, stroke, dehydration, stress/anxiety
cervicogenic headache, tension headache, medication induced dizziness from Lexapro
MDM/Problems Addressed:
79 yo female with history of TIA, CAD, [place] on Plavix, bilateral hip replacements, with a history of recurrent vertigo, last episode presenting today with a four-day history of symptoms. The vertigo has been occurring all day, every day since Tuesday.
The patient reports taking one dose Meclizine 4 days ago w/o improvement, none since and Ondansetron sublingually to manage nausea. Was started on Lexapro two months ago. She expresses that the vertigo is associated with a headache that is rated at
an 8 out of 10 in severity, localized to both temples, forehead, and extending up neck to the base of her skull. She does have neck pain with moving her neck rotating side to side. She denies current nausea, vomiting, chest pain, dyspnea, abdominal
pain, diarrhea, or constipation. The patient has a history of similar episodes and was treated previously, last episode 12/08/24 when admitted for TIA, 10/26/2024 seen here and diagnosed with vertigo.
No recent infections, fever, or chills or visual changes. Denies weakness, numbness, tingling in extremities.
Daughter at bed side states many members of her family including herself have significant Vertigo.
EKG sinus tachycardia at 107 bpm
5:45 PM:
CBC normal CMP normal
Troponin WNL
3:00 PM:
Cervical spine x-ray radiology report read: IMPRESSION:
1. No acute osseous abnormalities appreciated.
2. Moderate degenerative change within the mid and lower cervical spine as above.
Head CT radiology report: 1. Lacunar infarct within the right frontoparietal lobe, best seen on series 201 image 11, measuring 5 mm in diameter. Lacunar infarct was not clearly seen on prior CT, however has the appearance of a chronic lacunar
infarct.
2. Mild atrophy and mild chronic small vessel change.
Reviewed with Dr. Celis who agrees pt OK to proceed with P/T Vestibular eval.
4:00 PM: Physical therapy in eval not consistent with BPPV.
Pt states she's starting to feel dizzy again and get a headache.
Plan: Admit: dizziness, ?TIA ? CVA
Hospitalist notified of admission.
*Pulse Oximetry
SaO2: 100
Oxygen Mode of Delivery: Room air
Patient hypoxic: no
*EKG
EKG Intrepretation Date: 03/15/25
Interpretation: abnormal
Comparison EKG: changes noted
Heart Rate: 107
Rate: tachycardiac
Rhythm: sinus
[place]: normal axis
Interval: normal interval
QRS Pattern: normal QRS
Ischemia: no ischemia
*Critical Care Note
Total Time (30-74mins, 75-104mins- exclusive of procedures): Not Applicable
Patient Management
Social determinants of health affecting care: Strong social support (daughters live nearby and are supportive. Pt admits to stress of having to care of sick at home.)
ED Attending Note
-
Portions of this chart may have been created with voice recognition software.� Occasional wrong word or��sound alike� substitutions may have occurred due to the inherent limitations of voice recognition software.
Discharge Plan
Departure
Patient Disposition: Admit
Date of Disposition: 03/15/25
Time of Disposition: 16:11
Admit to: Med/Surg
Presentation/result/management discussed w/ accepting MD/DO: Hospitalist
Condition: Fair
Discharge Problem:
Dizziness
Interventions
Interventions:
*Risk Screen - Suicide Last Done: 03/15/25 19:55
*General Assessment Last Done: 03/15/25 11:44
*Neglect/Abuse Screening Last Done: 03/15/25 11:44
*ED- Fall Risk Assessment Last Done: 03/15/25 11:44
*ED COVID-19 Vaccine History Last Done: 03/15/25 11:44
*Nursing Disposition Last Done: 03/15/25 17:39
ED- Neurological Assessment Last Done: 03/15/25 11:44
ED- Cardiac Assessment Last Done: 03/15/25 11:44
ED Swallowing Screen Last Done: 03/15/25 11:44
Discharge Date and Time
Discharge Date/Time: 03/15/25 19:34
[2025-03-15 12:37] LABS: Blood Urea Nitrogen 17 mg/dl (7-17); Calcium 10.0 mg/dl (8.4-10.2); Carbon Dioxide 24 mmol/L (22-30); Chloride 101 mmol/L (98-107); Estimated Creatinine Clearance 49 ml/min; Glucose 87 mg/dl (70-99); Sodium 135 mmol/L (135-145); eGFR > 60.00
[2025-03-15] MEDS: TYLENOL 1000 MG PO (14:35)
--- NOTE | 2025-03-15 16:16 | HPS.HSE ---
Family Physician
-
Family Physician: Elysia Zepeda
Chief Complaint
-
dizzy
History of Present Illness
79 yo female with history of TIA, CAD, [place] , bilateral hip replacements, with a history of recurrent vertigo presented to us with dizzy since Tuesday. she felt like room spinning. she stated side of her head hurts. she was off balance and dizzy. when
she gets up. she took meclizine, and was sleeping more than usual. denied recent fever, chills, congestion, cough. denied chest pain, sob. denied abdominal pain,n,v,d. denied dysuria or hematuria.
admitting for further management.
Medical History
Past Medical History
Past Medical History: Reports Other
Additional Past Medical History:
Myocardial infraction, bradycardia,
Past Surgical History: Reports Other
Additional Past Surgical History:
Bilateral knee replacement, left hip replacement, lumbar back surgery, rotator cuff surgery
Social History
Tobacco: Former Smoker
Alcohol: None
Drug: None
Personal:
Living: With Family
Family History
Family History: Not pertinent
Allergies / Home Medications
Allergies reflects when Allergies were last updated in [facility].
Home Medications with original date entered in [facility]
Allergy/Medication List:
Allergies
Allergy/AdvReac Type Severity Reaction Status Date / Time
codeine Allergy Unknown Verified 12/16/24 09:39
latex Allergy Unknown Verified 12/16/24 09:39
Home Medications
aspirin 81 mg chewable tablet 81 mg PO DAILY 03/15/25
atorvastatin 40 mg tablet 40 mg PO DAILY 03/15/25
escitalopram oxalate 5 mg tablet 5 mg PO DAILY 03/15/25
meclizine 25 mg tablet 25 mg PO Q8HPRN PRN dizzy 03/15/25
metoprolol tartrate 50 mg tablet 50 mg PO BID 03/15/25
ondansetron HCl 4 mg tablet 4 mg PO Q6H PRN n/v 03/15/25
Review of Systems
-
Constitutional: Reports No Symptoms
EENT: Reports No Symptoms
Respiratory: Reports No Symptoms
Cardiac: Reports No Symptoms
Abdomen/GI: Reports No Symptoms
: Reports No Symptoms
Musculoskeletal: Reports No Symptoms
Skin: Reports No Symptoms
Neurological: Reports Dizzy and Headache
Endocrine: Reports No Symptoms
Hematologic/Lymphatic: Reports No Symptoms
Psych: Reports No Symptoms
Physical Exam
Vital Signs
Vital Signs
Temp Pulse Resp BP Pulse Ox
98.4 F 77 21 130/59 100
03/15/25 11:44 03/15/25 13:15 03/15/25 13:15 03/15/25 13:00 03/15/25 12:45
Physical Exam
General: Well Developed, Well Nourished and No Apparent Distress
HEENT: NormoCephalic, Moist mucous membranes and Atraumatic
Respiratory: Clear
Cardiac: S1/S2 and Regular Rhythm; No Murmur or Rub
GI: Soft, Non Tender, Non Distended and Normal Bowel Sounds; No Organomegaly
Rectal: Deferred by Provider
Musculoskeletal: No Clubbing, No Cyanosis and No Edema
Skin: No Rash
Neuro: AO x 3 and Nonfocal/grossly intact
Psych: Calm
Laboratory Results
-
03/15/25 11:47
03/15/25 11:47
Laboratory Results
Total Bilirubin Cancelled 03/15/25 11:47
AST Cancelled 03/15/25 11:47
ALT Cancelled 03/15/25 11:47
Alkaline Phosphatase Cancelled 03/15/25 11:47
Troponin I 0.014 ng/ml 03/15/25 11:47
Data Reviewed
-
CT Scan: Report Reviewed by me
Lab Data: Labs Reviewed by me
Impression/Plan
-
# Persistent dizziness/vertigo
- Head CT with impression lacunar infarct within the right frontoparietal lobe, best seen on series 201 image 11, measuring 5 mm in diameter. Lacunar infarct was not clearly seen on prior CT, however has the appearance of a chronic lacunar infarct.
2. Mild atrophy and mild chronic small vessel change.
- Negative for BPPV
- Obtain orthostatics
- PT/OT consult
- Cervical spine x-ray with no acute osseous abnormality, moderate degenerative changes within the mid and lower cervical spine
- EKG with sinus tachycardia
- Obtain MRI
- Aspirin statin continue
- Meclizine as needed
# Anxiety
- Escitalopram continue
# Essential hypertension
- Metoprolol continue with hold parameters
# DVT prophylaxis
- SCDs
# CODE STATUS
- Full code
--- NOTE | 2025-03-15 16:38 | W.PN.UPDATE ---
Update Note
Progress Note Update
This note serves as an addendum to the H&P by snake charmer BERNARD�
Jigna DINORA�
HPI
79F PMHX TIA, CAD, [place] on Plavix, bilateral hip replacements, HX recurrent vertigo seen at ER:
- HX recurrent vertigo , last episode presenting today with a four-day history of symptoms.
- The vertigo has been occurring all day, every day since Tuesday.
- reports taking one dose Meclizine 4 days ago w/o improvement, none since and Ondansetron sublingually to manage nausea.
- started on Lexapro two months ago.
- the vertigo is associated with a DC that is rated at an 8 out of 10 in severity, localized to both temples, forehead, and extending up neck to the base of her skull. She does have neck pain with moving her neck rotating side to side.
- HX similar episodes and was treated previously
last episode 12/08/24 when admitted for TIA, 10/26/2024 seen here and diagnosed with vertigo.
- Daughter at [facility] states many members of her family including herself have significant Vertigo.
ROS:
- she denies current nausea, vomiting, chest pain, dyspnea, abdominal pain, diarrhea, or constipation.
- No recent infections, fever, or chills or visual changes.
- Denies weakness, numbness, tingling in extremities.
Relevant VS
Unremarkable
PE
Gen: Nontoxic
HEENT: symmetric face , nl speech , no nystagmus
Neck: supple
Lungs: CTA
Cor: RRR S 1S2
Abdomen:�benign
CASE ASSISTANT: AAO3. NFND
MS: no edema
Psych: normal mood and affect
Relevant Data
Unremarkable labs
EKG
SINUS TACHYCARDIA
OTHERWISE NORMAL ECG
WHEN COMPARED WITH ECG OF 16-Dec-2024 13:52,
VENT. RATE HAS INCREASED by 38 bpm
QUESTIONABLE CHANGE IN QRS AXIS
NONSPECIFIC T WAVE ABNORMALITY NOW EVIDENT IN INFERIOR LEADS
Confirmed by MD MAGGI, PASCUAL López ([id number]) on 03/15/2025 1:17:22 PM
XR Cx spine
1. No acute osseous abnormalities appreciated.
2. Moderate degenerative change within the mid and lower cervical spine as above.
HCT
1. Lacunar infarct within the right frontoparietal lobe, best seen on series 201 image 11, measuring 5 mm in diameter.
Lacunar infarct was not clearly seen on prior CT, however has the appearance of a chronic lacunar infarct.
2. Mild atrophy and mild chronic small vessel change.
NO PRIOR hospitalist admission:
ASSESSMENT & PLAN
Recurrent vertigo
- Clinically dehydration - poor PO intake since since Tuesday due to sleping mostly due to vertigo
- Empiric IV NS
- PRN Meclizine
- check Ortho VSS time one
- Fall precaution
- PT/OT consult
HCT POS for 5 mm Lacunar infarct within the R frontoparietal lobe
HLD on statin
- R hand dominant
- clinically NFND
- Lacunar infarct was not clearly seen on prior CT, however has the appearance of a chronic lacunar infarct.
- Brain MRI in AM
- cont ENTRY LEVEL ELECTRICIAN Atorvastatin and ASA
- to consider Neuro consult if brain MRI is abnormal
Essential HTN
- cont. ENTRY LEVEL ELECTRICIAN Metoprolol
Questions of memory disorder/ dementia per daughter
- Has OP tele Neuro appointment
PMHX:
HX TIA on ASA
HX CAD, SC on Plavix
HX B/L THR
DVT Px: SCD
Full code
OBS TLM
--- NOTE | 2025-03-15 17:38 | EDRN ---
this RN called the receiving unit and notified them that paper report was going to be tubed up
--- NOTE | 2025-03-15 20:00 | PTCARENOTE ---
Patient arrived from ED via stretcher to [facility], alert and oriented, pleasant, c/o severe dizziness and unsteadiness upon arrival. Assist of 2 person to go from stretcher to bed for safety. VSS. Initiated on surveillance monitor #3 - NSR with HR 80-90s.
No complaints at this time. Oriented to room, call delacruz in reach, will continue to monitor.
[2025-03-15] MEDS: LOPRESSOR 50 MG PO (22:01)
[2025-03-15] MEDS: NSS 1000 IV (22:02)
[2025-03-16] VITALS (9 sets, daily range): BP systolic 80–147; BP diastolic 50–86; PULSE 90–117; O2SAT 99
--- NOTE | 2025-03-16 09:25 | W.PN.HOSP.TC ---
Addendum entered and electronically signed by Robin Alegria MD 03/16/25 09:41:
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
chronic
ASA, statin
Original Note:
Today's Communication/Plan
-
See PN
Assessment / Plan
Assessment / Plan
79yo F with PMHx of HLD, ASCVD, anxiety, HX of vertigo came with perisstent vetrigo for 5 days to the extent that she could not raise up from the bed. Usually her vertigo lasted 1-2 days most, but this time her called EMS since it persistent
for 4 days. Also transient unilateral purple spot in visual field.
A/P:
#Recurrent vertigo
#Orthostatic hypothension
Vertigo does not seems to be worsening on head motion, not classic for BPPV
Telemetry with NS
Patient had poor oral intake over past few days. Try IVF, encourage oral intake
Repeat Orthostatic VS daily
PT/OT
Neurology consult
MRI brain
#Anxiety
#ASCVD
#HLD
cont home meds
DVT ppx lovenox
Full code
I have spent at leat 52min reviewing chart, test results, communication with consultants and providing direct patient care
Anticipated Discharge: 24 - 48 hours
Subjective/Interval History
-
Date of Service: March 16, 2025
Objective Data
-
Labs:
Laboratory Results
03/16/25
06:46
Sodium Pending
Potassium Pending
Chloride Pending
Carbon Dioxide Pending
BUN Pending
Creatinine Pending
Glucose Pending
Calcium Pending
Total Bilirubin Pending
AST Pending
ALT Pending
Alkaline Phosphatase Pending
Vital Signs:
Vital Signs
Temp Pulse Resp BP Pulse Ox
98.1 F 80 16 118/62 99
03/16/25 07:16 03/16/25 07:16 03/16/25 07:16 03/16/25 07:16 03/16/25 07:16
Review of Systems
-
History Source: Patient
All other systems: Reviewed and negative
Physical Exam
-
General: Comfortable
HEENT: Normocephalic
Respiratory: Clear to Auscultation
Cardiac: Regular Rhythm
Rectal: Brown
Skin: Warm
Neuro: Awake, Alert, Oriented, AO x 3, No Motor Deficits and Nonfocal/Grossly Intact; Negative Tremors
Psych: Calm
[2025-03-16] MEDS: LEXAPRO 5 MG PO (09:31)
[2025-03-16] MEDS: LOW STRENGTH ASPIRIN 81 MG PO (09:31)
[2025-03-16] MEDS: LIPITOR 40 MG PO (09:32)
[2025-03-16] MEDS: LOPRESSOR 50 MG PO (09:32)
[2025-03-16] MEDS: NSS 1000 IV (09:33)
[2025-03-16 09:35] LABS: ALT (SGPT) 20 U/L (0-35); AST (SGOT) 38 U/L (14-36); Albumin 4.0 g/dl (3.5-5.0); Alkaline Phosphatase 59 U/L (38-126); Blood Urea Nitrogen 24 mg/dl (7-17); Calcium 9.3 mg/dl (8.4-10.2); Carbon Dioxide 27 mmol/L (22-30); Chloride 103 mmol/L (98-107); Estimated Creatinine Clearance 45 ml/min; Glucose 82 mg/dl (70-99); HDL Cholesterol 62 mg/dl; LDL Cholesterol, Calculated 62 mg/dl; Potassium 4.8 mmol/L (3.5-5.1); Sodium 136 mmol/L (135-145); Total Protein 6.4 g/dl (6.3-8.2); Very Low Density Lipoprotein 12 mg/dl (0-30); eGFR > 60.00
[2025-03-16] MEDS: NSS IV ×2 (09:54→20:24)
[2025-03-16] MEDS: NSS 500 IV (10:36)
[2025-03-16 12:20] LABS: Glycohemoglobin (HgbA1c) 5.6 % (4.0-5.6)
--- NOTE | 2025-03-16 16:55 | CM ---
Alert awake oriented patient who lives with her Emiliano in an apartment with 7 steps to enter .She is independent in driving and in all activities of daily living.Offered VN she declined.RIVERA copy given explained . Pt declined to sign RIVERA.
No adaptive devices
Never had VN/SNF
Pharmacy [facility]
PCP Dr Zepeda
PLAN Home no needs
[2025-03-16] MEDS: LOVENOX 40 MG SC (18:07)
[2025-03-16] MEDS: LOPRESSOR 25 MG PO (20:25)
[2025-03-17] VITALS (7 sets, daily range): BP systolic 84–128; BP diastolic 49–65; PULSE 69–104
[2025-03-17 01:11] LABS: Hepatitis C Antibody Negative (Negative)
[2025-03-17] MEDS: NSS 1000 IV ×2 (06:01→12:51)
[2025-03-17] MEDS: LOPRESSOR 25 MG PO (08:17)
[2025-03-17] MEDS: LOW STRENGTH ASPIRIN 81 MG PO (08:18)
[2025-03-17] MEDS: LEXAPRO 5 MG PO (08:18)
[2025-03-17] MEDS: LIPITOR 40 MG PO (08:18)
--- NOTE | 2025-03-17 09:27 | W.PN.HOSP.TC ---
Addendum entered and electronically signed by Robin Alegria MD 03/17/25 13:42:
discussed with daughter in details
Original Note:
Today's Communication/Plan
-
repeat PT after bolus and with compression stockings on
plan to d/c if tolerating ambulation
Assessment / Plan
Assessment / Plan
79yo F with PMHx of HLD, ASCVD, anxiety, HX of vertigo came with persistent vertigo for 5 days to the extent that she could not raise up from the bed. Usually her vertigo lasted 1-2 days most, but this time her called EMS since it persistent
for 4 days. Also transient unilateral purple spot in visual field. MRI of the brain neg for stroke. Patient found orthostatic hypotension and her symptoms are appearing only on ambulation. BB decreased, hydration provided which helped with
improvement of the symptoms, and compression stocking ordered before PT. Might need further w/u for hypotension as outpatient.
A/P:
#Recurrent vertigo
#Orthostatic hypotension
Vertigo does not seems to be worsening on head motion, not classic for BPPV
Telemetry with NS
Patient had poor oral intake over past few days. Try IVF, encourage oral intake
Repeat Orthostatic VS daily
PT/OT
Neurology consult
MRI brain: no CVA
decrease BB. hydrate, encourage oral intake
#Subclinical hypothyroidism
TSH 5.09 - can be physiologic for 79yo person. Repeat TFT in 2-3 weeks with PCP
#Anxiety
#ASCVD
#HLD
cont home meds
DVT ppx lovenox
Full code
I have spent at least 52min reviewing chart, test results, communication with consultants and providing direct patient care
Anticipated Discharge: Within 24 hours
Subjective/Interval History
-
Date of Service: March 17, 2025
Objective Data
-
Vital Signs:
Vital Signs
Temp Pulse Resp BP Pulse Ox
97.9 F 64 16 125/63 99
03/17/25 07:30 03/17/25 07:30 03/17/25 07:30 03/17/25 07:30 03/17/25 07:30
I&O
03/16/25 03/17/25 03/18/25
06:59 06:59 06:59
Intake Total 0 / 2279
Balance 2279 / 2279
Review of Systems
-
History Source: Patient
All other systems: Reviewed and negative
Neuro: Reports Dizzy (on upright standing)
--- NOTE | 2025-03-17 10:15 | CON.NEURO ---
Neuro Assessment/Plan
Assessment
Brain MRI imgs rev'd, mild atrophy and microvascular changes
Vertigo, now resolved
I don�t find anything on exam
no further work up.
Consultation
Order
Date of Consultation: 03/17/25
Requesting Provider: Airam
Reason for Consult: vertigo
Subjective/Objective
Subjective Data
Date of Service: March 17, 2025
79 yo female with history of TIA, CAD, NM , bilateral hip replacements, with a history of recurrent vertigo presented to us with dizzy since Tuesday. she felt like room spinning. she stated side of her head hurts. she was off balance and dizzy. when
she gets up. she took meclizine, and was sleeping more than usual. denied recent fever, chills, congestion, cough. denied chest pain, sob. denied abdominal pain,n,v,d. denied dysuria or hematuria.
patient reports the vertigo was constant even when she stayed still. No tinnitus or hearing changes. symptoms now resolved.
Objective Data
Vital Signs
Temp Pulse Resp BP Pulse Ox
36.6 C 64 16 125/63 99
03/17/25 07:30 03/17/25 07:30 03/17/25 07:30 03/17/25 07:30 03/17/25 07:30
Lab Results
03/15/25 11:47
03/16/25 06:46
Sodium 136 mmol/L (135-145) 03/16/25 06:46
Potassium 4.8 mmol/L (3.5-5.1) 03/16/25 06:46
BUN 24 mg/dl (7-17) H 03/16/25 06:46
Glucose 82 mg/dl (70-99) 03/16/25 06:46
Calcium 9.3 mg/dl (8.4-10.2) 03/16/25 06:46
LDL Cholesterol, Calc 62 mg/dl 03/16/25 06:46
Patient Allergies
codeine Allergy (Verified 12/16/24 09:39)
Unknown
latex Allergy (Verified 12/16/24 09:39)
Unknown
Physical Exam
-
AAOx3, speech clear, language intact
VFF, EOMI, no nystagmus with gaze fixation removed, no skew defiation
face symmetric
full strength b/l UE/LE
sensation intact
Medications
-
Active Medications
Generic Name Dose Route Start Last Admin
Trade Name Freq PRN Reason Stop Dose Admin
Acetaminophen 650 mg 03/15/25 19:35
Acetaminophen 325 Mg Tablet PO 04/12/25 19:34
Q4HPRN PRN
mild pain/DC/temp> 100.4F
Aspirin 81 mg 03/16/25 08:00 03/17/25 08:18
Aspirin 81 Mg Chewable Tablet PO 04/13/25 07:59 81 mg
DAILY JULIANNE Administration
Atorvastatin Calcium 40 mg 03/16/25 08:00 03/17/25 08:18
Atorvastatin (Lipitor) 40 Mg Tablet PO 04/13/25 07:59 40 mg
DAILY JULIANNE Administration
Bisacodyl 10 mg 03/15/25 19:35
Bisacodyl 10 Mg Rectal Suppository RECTAL 04/12/25 19:34
[id number] PRN
constipation
Enoxaparin Sodium 40 mg 03/16/25 18:00 03/16/25 18:07
Enoxaparin Sodium 40 Mg/0.4 Ml Syringe SC 04/13/25 17:59 40 mg
QPM JULIANNE Administration
Escitalopram Oxalate 5 mg 03/16/25 08:00 03/17/25 08:18
Escitalopram 5 Mg Tablet PO 04/13/25 07:59 5 mg
DAILY JULIANNE Administration
Sodium Chloride 1,000 mls @ 80 mls/hr 03/16/25 09:30 03/17/25 06:01
Nss IV 1,000 mls
[id number] JULIANNE Administration
Meclizine HCl 25 mg 03/15/25 19:35
Meclizine 25 Mg Tablet PO 04/12/25 19:34
Q8HPRN PRN
dizzy
Metoprolol Tartrate 12.5 mg 03/17/25 20:00
Metoprolol 12.5 Mg Regular Release Dose (1/2 Of 25 Mg Tablet) PO 04/14/25 19:59
BID JULIANNE
Polyethylene Glycol 17 grams 03/15/25 19:35
Polyethylene Glycol Powder 17 Grams Packet PO 04/12/25 19:34
DAILYPRN PRN
constipation
Senna/Docusate Sodium 1 tablet 03/15/25 19:35
Docusate W/Senna (Carole-Colace) Tablet PO 04/12/25 19:34
BIDPRN PRN
constipation
Sodium Chloride 0 flush 03/15/25 21:00
Sodium Chloride 0.9% (Flush) Syringe IV 04/12/25 20:59
PER PROTOCOL JULIANNE
Home Medications
�Medication �Instructions �Recorded
aspirin 81 mg chewable tablet 81 mg PO DAILY Blood Clot 03/15/25
Prevention/Tx
atorvastatin 40 mg tablet 40 mg PO DAILY High Cholesterol 03/15/25
escitalopram oxalate 5 mg tablet 5 mg PO DAILY Mental Health/Anxiety 03/15/25
meclizine 25 mg tablet 25 mg PO Q8HPRN PRN dizzy 03/15/25
metoprolol tartrate 50 mg tablet 50 mg PO BID Heart 03/15/25
Disease/Condition
ondansetron HCl 4 mg tablet 4 mg PO Q6H PRN n/v 03/15/25
[2025-03-17] MEDS: TYLENOL 650 MG PO (10:32)
[2025-03-17] MEDS: NSS 500 IV (10:32)
[2025-03-17] MEDS: LOVENOX 40 MG SC (18:12)
[2025-03-17] MEDS: LOPRESSOR 12.5 MG PO (21:21)
[2025-03-18 03:00] VITALS: BP 114/64
[2025-03-18 06:00] VITALS: BMI 28.7
[2025-03-18 07:14] VITALS: BP 114/62
[2025-03-18] MEDS: LOPRESSOR 12.5 MG PO (08:27)
[2025-03-18] MEDS: LEXAPRO 5 MG PO (08:27)
[2025-03-18] MEDS: LIPITOR 40 MG PO (08:27)
[2025-03-18] MEDS: LOW STRENGTH ASPIRIN 81 MG PO (08:27)
[2025-03-18 09:53] VITALS: BP 131/66; BP 136/73; PULSE 70
--- NOTE | 2025-03-18 09:55 | W.PN.HOSP.TC ---
Today's Communication/Plan
-
dc
Assessment / Plan
Assessment / Plan
79yo F with PMHx of HLD, ASCVD, anxiety, HX of vertigo came with persistent vertigo for 5 days to the extent that she could not raise up from the bed. Usually her vertigo lasted 1-2 days most, but this time her called EMS since it persistent
for 4 days. Also transient unilateral purple spot in visual field. MRI of the brain neg for stroke. Patient found orthostatic hypotension and her symptoms are appearing only on ambulation. BB decreased, hydration provided which helped with
improvement of the symptoms, and compression stocking ordered before PT. Might need further w/u for hypotension as outpatient, but symptoms resolved on the day of D/C after abovementioned changes implemented. PT/OT recommended home PT - CM informed.
Medcially stable to be d/c home
A/P:
#Recurrent vertigo
#Orthostatic hypotension
Vertigo does not seems to be worsening on head motion, not classic for BPPV
Telemetry with NS
Patient had poor oral intake over past few days. Try IVF, encourage oral intake
Repeat Orthostatic VS daily
PT/OT
Neurology consult
MRI brain: no CVA
decrease BB. hydrate, encourage oral intake
#Subclinical hypothyroidism
TSH 5.09 - can be physiologic for 79yo person. Repeat TFT in 2-3 weeks with PCP
#Anxiety
#ASCVD
#HLD
cont home meds
##Lacunar infarct within the right frontoparietal lobe
chronic
ASA, statin
DVT ppx lovenox
Full code
I have spent at least 36min reviewing chart, test results, communication with consultants and providing direct patient care
Anticipated Discharge: Today
Subjective/Interval History
-
Date of Service: March 18, 2025
Objective Data
-
Vital Signs:
Vital Signs
Temp Pulse Resp BP Pulse Ox
97.7 F 66 16 114/62 96
03/18/25 07:14 03/18/25 08:27 03/18/25 07:14 03/18/25 08:27 03/18/25 07:14
I&O
03/17/25 03/18/25 03/19/25
06:59 06:59 06:59
Intake Total 2280 / 2280 1340 / 1340
Balance 2280 / 2280 1340 / 1340
Review of Systems
-
History Source: Patient
All other systems: Reviewed and negative
EENT: Reports No Symptoms Reported
Physical Exam
-
General: No Apparent Distress
Neuro: Awake, Alert, Oriented and AO x 3
Psych: Calm
--- NOTE | 2025-03-18 09:59 | W.DCSUMMARY ---
Discharge Summary
Discharge Data
Date of Admission: 03/15/25
Date of Discharge: 03/18/25
-
Pending Results: No
Hospital Course
79yo F with PMHx of HLD, ASCVD, anxiety, HX of vertigo came with persistent vertigo for 5 days to the extent that she could not raise up from the bed. Usually her vertigo lasted 1-2 days most, but this time her called EMS since it persistent
for 4 days. Also transient unilateral purple spot in visual field. MRI of the brain neg for stroke. Patient found orthostatic hypotension and her symptoms are appearing only on ambulation. BB decreased, hydration provided which helped with
improvement of the symptoms, and compression stocking ordered before PT. Might need further w/u for hypotension as outpatient, but symptoms resolved on the day of D/C after mentioned changes implemented. PT/OT recommended home PT - CM informed.
Medcially stable to be d/c home. Repeat TFT in 2-3 weeks with PCP - discussed with daughter too
I have spent at least 36min reviewing chart, test results, communication with consultants and providing direct patient care
Patient was managed for:
#Recurrent vertigo
#Orthostatic hypotension
#Subclinical hypothyroidism
#Anxiety
#ASCVD
#HLD
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
Discharge Plan
-
Patient Disposition: Home with Home Care
Discharge Diagnosis/Procedures: Orthostatic hypotension
Diet: Low Cholesterol
Activity: As tolerated
Blood Work: Repeat TFT in 2-3 weeks with family doctor
Other Services: PT
Activity Restrictions/Additional Instructions:
Wear thigh high compression stockings on ambulation
Referrals:
Elysia Zepeda DO [Family Provider, Family Practice] - in one to two weeks
Referral Note: Repeat TFT
Prescriptions:
New
metoprolol tartrate 25 mg Tablet
12.5 mg PO BID Qty: 30 0RF
Continued
atorvastatin 40 mg tablet
40 mg PO DAILY
ondansetron HCl 4 mg Tablet
4 mg PO Q6H PRN (Reason: n/v)
meclizine 25 mg Tablet
25 mg PO Q8HPRN PRN (Reason: dizzy)
aspirin 81 mg Tablet,Chewable
81 mg PO DAILY
escitalopram oxalate 5 mg tablet
5 mg PO DAILY
Discontinued
metoprolol tartrate 50 mg tablet
50 mg PO BID
Discharge Orders:
Discharge Patient (As Directed); Ordered 03/18/25
Ordered By: Robin Alegria
Discharge Date and Time
Print Language: [place]
[2025-03-18 10:58] VITALS: BP 119/69
== END 2025-03-18 14:29 | disposition home or self-care (01) ==
LOC: 3 WEST ACU 17:18
PROVIDERS: Registered Nurse; ADMITTING PHYSICIAN Internal Medicine; ATTENDING PHYSICIAN Internal Medicine; CONSULT PHYSICIAN Psychiatry & Neurology Clinical Neurophysiology; EMERGENCY PHYSICIAN Emergency Medicine; FAMILY PHYSICIAN Family Medicine
DX: I95.1 Orthostatic hypotension (principal); R42 Dizziness and giddiness; R11.0 Nausea; R00.0 Tachycardia, unspecified; R51.9 Headache, unspecified; E78.00 Pure hypercholesterolemia, unspecified; E03.8 Other specified hypothyroidism; I10 Essential (primary) hypertension; I25.10 Atherosclerotic heart disease of native coronary artery without angina pectoris; M47.812 Spondylosis without myelopathy or radiculopathy, cervical region; I67.82 Cerebral ischemia; E86.0 Dehydration; F41.9 Anxiety disorder, unspecified; G31.9 Degenerative disease of nervous system, unspecified; I25.2 Old myocardial infarction; Z86.73 Personal history of transient ischemic attack (TIA), and cerebral infarction without residual deficits; Z79.02 Long term (current) use of antithrombotics/antiplatelets; Z96.643 Presence of artificial hip joint, bilateral; Z79.82 Long term (current) use of aspirin; Z63.6 Dependent relative needing care at home; Z87.891 Personal history of nicotine dependence; Z96.653 Presence of artificial knee joint, bilateral; Z91.040 Latex allergy status; Z88.5 Allergy status to narcotic agent; Z79.899 Other long term (current) drug therapy
CPT/HCPCS: 70450; 70553; 72050; 80048; 80053; 80061; 82248; 83036; 84439; 84443; 84484; 85025; 86803; 93005; 97116; 97162; 97167; 97530; 99285; G0378